=== PATIENT | female | born 1960 | race Caucasian/White ===

== ENCOUNTER 2016-11-14 16:23 | Emergency (ER) | payer OTHER ==
[2016-11-14 16:35] VITALS: BP 132/91
== END 2016-11-14 18:51 | disposition home or self-care (01) ==
LOC: ED 16:23
DX: R68.84 Jaw pain (principal); Z88.0 Allergy status to penicillin
CPT/HCPCS: J1885

== ENCOUNTER 2019-07-04 16:15 | Emergency (ER) | payer OTHER ==
[~2019-07-04] VITALS: Ht 165.1 cm; Wt 74.8 kg
[2019-07-04 16:21] VITALS: Ht 165.1 cm; Wt 74.8 kg
[2019-07-04 17:22] VITALS: BP 121/68
== END 2019-07-04 17:22 | disposition home or self-care (01) ==
LOC: ED 16:15
DX: F43.23 Adjustment disorder with mixed anxiety and depressed mood (principal); Z88.0 Allergy status to penicillin